=== PATIENT | male | born 1990 | race African-American/Black ===

== ENCOUNTER 2021-09-11 06:00 | Emergency (ER) | payer MEDICAID ==
--- NOTE | 2021-09-11 06:16 | NUR ---
pt requesting to speak with charger tester prior to triage. when attempting to assist patient with questioning, he notified this rn that he would be recording the conversation. pt went on to state "i have been seen at 3 different and these doctors wont drain the venom out of my bug bites. i was reading the papers and i dont want a doctor thats contracted, i want a doctor who works for this hospital just in case i need to [place]." this rn attempted to rationalize with the patient and was unsuccessful. at this time pt left facility without being seen by a provider.
== END 2021-09-11 06:16 | disposition left against medical advice (07) ==
LOC: MED 06:00
DX: B99.9 Unspecified infectious disease (principal); Z53.21 Procedure and treatment not carried out due to patient leaving prior to being seen by health care provider